=== PATIENT | male | born 1990 | race Caucasian/White ===

== ENCOUNTER 2021-02-08 23:16 | Emergency (ER) | payer OTHER ==
[2021-02-08 23:21] VITALS: BP 128/76; PULSE 71; RESP 18; TEMP 98
[2021-02-08] MEDS ORDERED: MAG HYDROX/AL HYDROX/SIMETH 30 ML, HYOSCYAMINE ELIXIR 10 ML, LIDOCAINE VISCOUS 2% 10 ML PO STA ×3 (23:42)
--- NOTE | 2021-02-09 | ED ---
ENT HPI - General Chief complaint: ENT Stated complaint: Poss FB in throat Time Seen by Provider: 02/08/21 23:41 Source: patient, RN notes reviewed, old records reviewed Mode of arrival: ambulatory Limitations: no limitations - History of Present Illness MD complaint: sore throat -: hour(s) Severity: moderate Severity scale (1-10): 5 Quality: aching Consistency: constant Improves with: none Worsens with: none Context-Epistaxis: other (none) Context- Ear: other (none) Associated Symptoms: cough - Related Data Allergies Allergy/AdvReac Type Severity Reaction Status Date / Time Penicillins Allergy Rash/Hives Verified 02/08/21 23:21 Review of Systems ROS Statement: Those systems with pertinent positive or pertinent negative responses have been documented in the HPI. ROS Other: All systems not noted in ROS Statement are negative. Past Medical History Past Medical History: No Reported History History of Any Multi-Drug Resistant Organisms: None Reported Past Surgical History: No Surgical Hx Reported Smoking Status: Current every day smoker Past Alcohol Use History: None Reported Past Drug Use History: None Reported General Exam Limitations: no limitations General appearance: alert, in no apparent distress Head exam: Present: atraumatic, normocephalic, normal inspection Eye exam: Present: normal appearance, PERRL, EOMI. Absent: scleral icterus, conjunctival injection, periorbital swelling ENT exam: Present: normal exam, mucous membranes moist Neck exam: Present: normal inspection. Absent: tenderness, meningismus, lymphadenopathy Respiratory exam: Present: normal lung sounds bilaterally. Absent: respiratory distress, wheezes, rales, rhonchi, stridor Cardiovascular Exam: Present: regular rate, normal rhythm, normal heart sounds. Absent: systolic murmur, diastolic murmur, rubs, gallop, clicks GI/Abdominal exam: Present: soft, normal bowel sounds. Absent: distended, tenderness, guarding, rebound, rigid Extremities exam: Present: normal inspection, full ROM, normal capillary refill. Absent: tenderness, pedal edema, joint swelling, calf tenderness Back exam: Present: normal inspection Neurological exam: Present: alert, oriented X3, CN II-XII intact Psychiatric exam: Present: normal affect, normal mood Skin exam: Present: warm, dry, intact, normal color. Absent: rash Course Vital Signs 02/08/21 23:17 Temperature 98.0 F Pulse Rate 71 Respiratory 18 Rate Blood Pressure 128/76 O2 Sat by Pulse 99 Oximetry - Reevaluation(s) Reevaluation #1: Medical record is reviewed Patient symptoms are significantly improved here in the emergency department Patient family informed of results, questions answered Disposition Clinical Impression: Esophageal foreign body Disposition: HOME SELF-CARE Condition: Good Instructions (If sedation given, give patient instructions): Esophageal Foreign Body (ED) Is patient prescribed a controlled substance at d/c from ED?: No Referrals: None,Stated [Primary Care Provider] - 1-2 days
--- NOTE | 2021-02-09 00:08 | XR ---
EXAMINATION TYPE: XR chest 1V portable DATE OF EXAM: 02/08/2021 COMPARISON: NONE HISTORY: Chest pain TECHNIQUE: Single view FINDINGS: Heart and mediastinum are normal. Lungs are clear. Diaphragm is normal. Bony thorax is inta ct. IMPRESSION: Normal chest.
== END 2021-02-09 02:07 | disposition home or self-care (01) ==
LOC: EC 23:16
DX: T18.108A Unspecified foreign body in esophagus causing other injury, initial encounter (principal); F17.200 Nicotine dependence, unspecified, uncomplicated; Z88.0 Allergy status to penicillin; X58.XXXA Exposure to other specified factors, initial encounter
CPT/HCPCS: 71045; 99283